=== PATIENT | female | born 1955 | race African-American/Black ===

== ENCOUNTER 2022-01-23 16:51 | Emergency (ER) | payer MEDICAID, MEDICARE ==
[~2022-01-23] VITALS: Ht 157.5 cm; Wt 68.0 kg
[2022-01-23 16:58] VITALS: BP 129/84
== END 2022-01-23 20:00 | disposition left against medical advice (07) ==
LOC: ER 18:34
DX: Z53.21 Procedure and treatment not carried out due to patient leaving prior to being seen by health care provider (principal)

== ENCOUNTER 2022-02-15 16:46 | Emergency (ER) | payer MEDICARE ==
[~2022-02-15] VITALS: Ht 154.9 cm; Wt 69.4 kg
[2022-02-15 17:02] VITALS: BP 160/78
[2022-02-15 18:07] LABS: BASOPHILS % 1.4 % (0.0-2.0); HEMATOCRIT. 37.5 % (36.0-48.0); HEMOGLOBIN. 11.8 g/dL (12.0-16.0); LYMPHOCYTES % 31.3 % (20.0-50.0); MEAN CORPUSCULAR HEMOGLOBIN 26.8 pg (28.0-32.0); MEAN PLATELET VOLUME 6.5 fl (7.4-10.4); MONOCYTES % 9.4 % (2.0-8.0); NEUTROPHILS % 55.9 % (40.0-76.0); PLATELET 422 x1000/uL (130-400); RED BLOOD CELL COUNT 4.41 mill/uL (4.2-5.4); RED CELL DISTRIBUTION WIDTH 15.5 % (11.6-14.6)
[2022-02-15 18:14] LABS: CHLORIDE 110 mEq/L (98-107)
[2022-02-15 19:04] LABS: CLARITY URINE CLEAR (CLEAR); COLOR URINE YELLOW (YELLOW); KETONES URINE TRACE (NEGATIVE); LEUKOCYTE ESTERASE URINE 1+ (NEGATIVE); NITRITE URINE POSITIVE (NEGATIVE); OCCULT BLOOD URINE TRACE (NEGATIVE); PH URINE 5.5 (4.5-8.0); PROTEIN URINE NEGATIVE (NEGATIVE); SPECIFIC GRAVITY URINE 1.016 (1.005-1.030)
[2022-02-15] MEDS ORDERED: CIPR-263 MT (19:29)
[2022-02-15] MEDS ORDERED: ACET-2708 MT (19:30)
== END 2022-02-15 19:53 | disposition home or self-care (01) ==
LOC: ER 16:46
DX: N12 Tubulo-interstitial nephritis, not specified as acute or chronic (principal); J44.9 Chronic obstructive pulmonary disease, unspecified; I10 Essential (primary) hypertension
CPT/HCPCS: 36415; 80053; 81003; 81025; 85025; 99283